=== PATIENT | male | born 1955 | race Caucasian/White ===

== ENCOUNTER 2017-12-27 13:31 | Emergency (ER) | payer OTHER ==
[~2017-12-27] VITALS: Ht 185.4 cm; Wt 140.2 kg
[2017-12-27] MEDS ORDERED: PERCOCET 5/31 TABLET PO (16:21)
[2017-12-27 16:48] VITALS: BP 156/88
== END 2017-12-27 16:51 | disposition home or self-care (01) ==
LOC: EME 13:31
DX: S62.316A Displaced fracture of base of fifth metacarpal bone, right hand, initial encounter for closed fracture (principal); S20.211A Contusion of right front wall of thorax, initial encounter; S80.211A Abrasion, right knee, initial encounter; W01.0XXA Fall on same level from slipping, tripping and stumbling without subsequent striking against object, initial encounter; Z23 Encounter for immunization; Z88.5 Allergy status to narcotic agent
CPT/HCPCS: 71250; 73090; 73110; 73130; 99281; 99285; J3010